=== PATIENT | male | born 1980 | race African-American/Black ===

== ENCOUNTER 2023-11-12 11:46 | Emergency (ER) | payer MEDICAID ==
[~2023-11-12] VITALS: Ht 177.8 cm; Wt 65.9 kg
[2023-11-12] MEDS ORDERED: DOXY-354 PO (13:43)
[2023-11-12 14:23] VITALS: BP 121/91; PULSE 60; RESP 18; TEMP 98.2
== END 2023-11-12 14:28 | disposition home or self-care (01) ==
LOC: EMS 11:46
DX: D23.4 Other benign neoplasm of skin of scalp and neck (principal)
CPT/HCPCS: 99283; Z7502